=== PATIENT | male | born 1990 | race Caucasian/White ===

== ENCOUNTER 2017-01-30 17:14 | Emergency (ER) | payer SELFPAY ==
[~2017-01-30] VITALS: Ht 182.9 cm; Wt 100.0 kg
[2017-01-30] MEDS ORDERED: SODIUM CHLORIDE 0.9% 1,000 ML IV ONE (17:44)
[2017-01-30] MEDS ORDERED: ACETAMINOPHEN 325MG TABLET PO STA (17:44)
[2017-01-30 18:24] LABS: BASOPHILS % 0.8 % (0.0-2.0); EOSINOPHILS % 1.3 % (0.0-5.0); HEMATOCRIT. 44.8 % (42.0-52.0); HEMOGLOBIN. 15.3 g/dL (14.0-18.0); LYMPHOCYTES % 14.9 % (20.0-50.0); MEAN CORPUSCULAR HEMOGLOBIN 30.4 pg (28.0-32.0); MEAN PLATELET VOLUME 8.3 fl (7.4-10.4); MONOCYTES % 6.7 % (2.0-8.0); NEUTROPHILS % 76.3 % (40.0-76.0); PLATELET 324 x1000/uL (130-400); RED BLOOD CELL COUNT 5.03 mill/uL (4.7-6.1); RED CELL DISTRIBUTION WIDTH 13.7 % (11.6-14.6)
[2017-01-30 18:27] LABS: CLARITY URINE CLEAR (CLEAR); COLOR URINE YELLOW (YELLOW); GLUCOSE URINE NEGATIVE (NEGATIVE); KETONES URINE NEGATIVE (NEGATIVE); LEUKOCYTE ESTERASE URINE NEGATIVE (NEGATIVE); NITRITE URINE NEGATIVE (NEGATIVE); OCCULT BLOOD URINE NEGATIVE (NEGATIVE); PROTEIN URINE NEGATIVE (NEGATIVE); SPECIFIC GRAVITY URINE 1.011 (1.005-1.030); UROBILINOGEN URINE 0.2 E.U./dL (0.2-1.0)
[2017-01-30 18:28] LABS: INR 1.1; PROTHROMBIN TIME 11.2 sec
[2017-01-30 18:30] LABS: CHLORIDE 107 mEq/L (98-107)
[2017-01-30 18:38] LABS: CARBON DIOXIDE 25 mEq/L (21-32); ETHANOL BLOOD 283 mg/dL; TROPONIN I < 0.02 ng/mL (0.00-0.04)
[2017-01-30 18:53] LABS: *AMPHETAMINES SCREEN URINE NEGATIVE (NEGATIVE); *BARBITURATES SCREEN URINE NEGATIVE (NEGATIVE); *BENZODIAZEPINES SCREEN URINE NEGATIVE (NEGATIVE); *COCAINE SCREEN URINE NEGATIVE (NEGATIVE); CANNABINOID URINE SCREEN NEGATIVE (NEGATIVE); METHADONE URINE SCREEN NEGATIVE (NEGATIVE); OPIATES URINE SCREEN NEGATIVE (NEGATIVE); PHENCYCLIDINE URINE SCREEN NEGATIVE (NEGATIVE)
[2017-01-30] MEDS ORDERED: LIDOCAINE HCL 1% 20ML VIAL (Pyxis) INJ INFIL ONE (21:45)
[2017-01-30] MEDS ORDERED: BACITRACIN/POLYMYXIN B SULFATE OINT 15GM TOP ONE (22:45)
[2017-01-30] MEDS ORDERED: BACITRACIN ZINC OINT UDPKT TOP ONE (23:00)
[2017-01-30 23:21] VITALS: BP 133/87
== END 2017-01-30 23:22 | disposition home or self-care (01) ==
LOC: ER 18:01 → EDBD 18:01 → ER 23:22
DX: S02.2XXA Fracture of nasal bones, initial encounter for closed fracture (principal); S01.511A Laceration without foreign body of lip, initial encounter; F10.129 Alcohol abuse with intoxication, unspecified; J45.909 Unspecified asthma, uncomplicated; Y04.0XXA Assault by unarmed brawl or fight, initial encounter; Y93.89 Activity, other specified; Y99.8 Other external cause status; Y92.89 Other specified places as the place of occurrence of the external cause
CPT/HCPCS: 12011; 36415; 70450; 71010; 72125; 80053; 80305; 81003; 83690; 84484; 85025; 85610; 93005; 96360; 99285; A4217; G0482; J3490; J7030; Z7610

== ENCOUNTER 2020-11-06 18:21 | Emergency (ER) | payer OTHER ==
[~2020-11-06] VITALS: Ht 167.6 cm; Wt 100.0 kg
[2020-11-06 21:02] VITALS: BP 134/81
== END 2020-11-06 21:02 | disposition home or self-care (01) ==
LOC: ER 18:21
DX: F29 Unspecified psychosis not due to a substance or known physiological condition (principal); Z00.00 Encounter for general adult medical examination without abnormal findings; J45.909 Unspecified asthma, uncomplicated
CPT/HCPCS: 99283

== ENCOUNTER 2021-03-17 22:15 | Emergency (ER) | payer MEDICAID, OTHER ==
[~2021-03-17] VITALS: Ht 175.3 cm; Wt 82.0 kg
[2021-03-17] MEDS ORDERED: SODIUM CHLORIDE 0.9% 1,000 ML IV ONE (23:30)
[2021-03-17 23:52] LABS: CHLORIDE 110 mEq/L (98-107)
[2021-03-17 23:56] LABS: BASOPHILS % 0.7 % (0.0-2.0); EOSINOPHILS % 2.7 % (0.0-5.0); HEMATOCRIT. 42.7 % (42.0-52.0); LYMPHOCYTES % 33.5 % (20.0-50.0); MEAN CORPUSCULAR HEMOGLOBIN 30.8 pg (28.0-32.0); MEAN CORPUSCULAR VOLUME 87.7 fL (80.0-94.0); MEAN PLATELET VOLUME 8.1 fl (7.4-10.4); MONOCYTES % 6.4 % (2.0-8.0); NEUTROPHILS % 56.7 % (40.0-76.0); PLATELET 236 x1000/uL (130-400); RED BLOOD CELL COUNT 4.87 mill/uL (4.7-6.1); RED CELL DISTRIBUTION WIDTH 13.9 % (11.6-14.6)
[2021-03-17 23:57] LABS: ETHANOL BLOOD 227 mg/dL
[2021-03-18] MEDS ORDERED: LORAZEPAM 2MG/ML CPJ IM ONE
[2021-03-18 01:51] LABS: *AMPHETAMINES SCREEN URINE NEGATIVE (NEGATIVE); *BARBITURATES SCREEN URINE NEGATIVE (NEGATIVE); *COCAINE SCREEN URINE NEGATIVE (NEGATIVE); METHADONE URINE SCREEN NEGATIVE (NEGATIVE); OPIATES URINE SCREEN NEGATIVE (NEGATIVE)
[2021-03-18 01:52] LABS: *BENZODIAZEPINES SCREEN URINE NEGATIVE (NEGATIVE); CANNABINOID URINE SCREEN NEGATIVE (NEGATIVE); PHENCYCLIDINE URINE SCREEN NEGATIVE (NEGATIVE)
[2021-03-18] MEDS ORDERED: LORAZEPAM 2MG/ML CPJ IV ONE (10:00)
[2021-03-18] MEDS ORDERED: HALOPERIDOL LACTATE 5MG/ML VIAL IM ONE (10:00)
[2021-03-18] MEDS: FLUOXETINE HCL 10 MG CAPSULE PO SCH (11:25)
[2021-03-18] MEDS ORDERED: OLANZAPINE 5MG TABLET ODT PO ONE (13:15)
[2021-03-18] MEDS ORDERED: LORAZEPAM 1MG TABLET PO ONE ×2 (23:00→23:15)
[2021-03-19] MEDS: FLUOXETINE HCL 10 MG CAPSULE PO SCH (08:58)
[2021-03-19] MEDS ORDERED: LORAZEPAM 1MG TABLET PO ONE (10:30)
[2021-03-19 18:30] VITALS: BP 146/82
== END 2021-03-19 19:00 ==
LOC: ER 22:15
DX: T43.292A Poisoning by other antidepressants, intentional self-harm, initial encounter (principal); F41.9 Anxiety disorder, unspecified; F32.9 Major depressive disorder, single episode, unspecified; F17.210 Nicotine dependence, cigarettes, uncomplicated; F15.10 Other stimulant abuse, uncomplicated; F12.10 Cannabis abuse, uncomplicated; Z20.822 Contact with and (suspected) exposure to COVID-19; Z71.6 Tobacco abuse counseling; Z78.1 Physical restraint status; Z75.1 Person awaiting admission to adequate facility elsewhere; Y92.018 Other place in single-family (private) house as the place of occurrence of the external cause
CPT/HCPCS: 36415; 80053; 80307; 80320; 80329; 85025; 93005; 96361; 96372; 96374; 99291; 99406; J1630; J2060; J7030; G0480

== ENCOUNTER 2021-05-18 00:45 | Emergency (ER) | payer MEDICAID ==
[~2021-05-18] VITALS: Ht 172.7 cm; Wt 90.0 kg
[2021-05-18] MEDS ORDERED: LIDOCAINE HCL/EPINEPHRINE 1%-EPI 1:100,000 50 ML VIAL INFIL ONE (02:45)
[2021-05-18 02:55] LABS: BASOPHILS % 0.7 % (0.0-2.0); EOSINOPHILS % 1.2 % (0.0-5.0); HEMATOCRIT. 42.2 % (42.0-52.0); HEMOGLOBIN. 14.8 g/dL (14.0-18.0); LYMPHOCYTES % 13.6 % (20.0-50.0); MEAN CORPUSCULAR HEMOGLOBIN 31.1 pg (28.0-32.0); MEAN CORPUSCULAR VOLUME 88.3 fL (80.0-94.0); MEAN PLATELET VOLUME 8.2 fl (7.4-10.4); MONOCYTES % 4.3 % (2.0-8.0); NEUTROPHILS % 80.2 % (40.0-76.0); PLATELET 305 x1000/uL (130-400); RED BLOOD CELL COUNT 4.78 mill/uL (4.7-6.1)
[2021-05-18] MEDS ORDERED: LIDOCAINE HCL/EPINEPHRINE 1%-EPI 1:100,000 20 ML VIAL INFIL SCH (03:00)
[2021-05-18 03:23] LABS: CHLORIDE 108 mEq/L (98-107)
[2021-05-18 03:29] LABS: ETHANOL BLOOD 191 mg/dL
[2021-05-18] MEDS ORDERED: TETANUS, DIPHTHERIA, PERTUSSIS VAC/PF 0.5ML (>10YR OLD) IM ONE (06:15)
[2021-05-18] MEDS: BUPROPION HCL 150MG TABLET XL 24HR PO SCH (11:39)
[2021-05-19 04:51] LABS: CLARITY URINE CLEAR (CLEAR); COLOR URINE YELLOW (YELLOW); KETONES URINE NEGATIVE (NEGATIVE); LEUKOCYTE ESTERASE URINE TRACE (NEGATIVE); NITRITE URINE NEGATIVE (NEGATIVE); OCCULT BLOOD URINE NEGATIVE (NEGATIVE); PROTEIN URINE NEGATIVE (NEGATIVE); SPECIFIC GRAVITY URINE 1.014 (1.005-1.030); UROBILINOGEN URINE 0.2 E.U./dL (0.2-1.0)
[2021-05-19 05:02] LABS: *BARBITURATES SCREEN URINE NEGATIVE (NEGATIVE); *BENZODIAZEPINES SCREEN URINE NEGATIVE (NEGATIVE); *COCAINE SCREEN URINE NEGATIVE (NEGATIVE)
[2021-05-19 05:03] LABS: *AMPHETAMINES SCREEN URINE NEGATIVE (NEGATIVE); CANNABINOID URINE SCREEN PRESUMTIVE POSITIVE (NEGATIVE); METHADONE URINE SCREEN NEGATIVE (NEGATIVE); OPIATES URINE SCREEN NEGATIVE (NEGATIVE); PHENCYCLIDINE URINE SCREEN NEGATIVE (NEGATIVE)
[2021-05-19] MEDS: BUPROPION HCL 150MG TABLET XL 24HR PO SCH (11:08)
[2021-05-19] MEDS ORDERED: ACETAMINOPHEN 325MG TABLET PO ONE (11:30)
[2021-05-19] MEDS ORDERED: BUPR-102 MT (16:36)
[2021-05-19 17:15] VITALS: BP 124/74
== END 2021-05-19 17:20 | disposition home or self-care (01) ==
LOC: ER 00:45
DX: F12.10 Cannabis abuse, uncomplicated (principal); F15.10 Other stimulant abuse, uncomplicated; Z20.822 Contact with and (suspected) exposure to COVID-19
CPT/HCPCS: 12001; 36415; 80053; 80305; 80307; 80320; 80329; 81003; 85025; 90471; 90715; 93005; 99285; A4217; C9803; J3490; U0003; U0005; Z7610; G0480